=== PATIENT | male | born 1945 | race Hispanic/Latino ===

== ENCOUNTER 2017-11-27 08:00 | Outpatient (AMBR) | payer MEDICARE, MEDICAID, SELFPAY ==
--- NOTE | 2017-11-19 10:10 | PT.OIERPT ---
PT OP Initial Eval Patient Information Visit Reasons: Pain Medical Diagnosis: Treatment Dx #1: Start of Care: 11/19/17 Date of Onset: 8 weeks ago Initial Assessment Subjective Pt is 71 yr old [place] speaking male with Hx of C/S sx x3 with complaints of R sided weakness in the shoulders and LE's R>L side. The last sx was a laminectomy/fusion to repair a nerve pinch where he lost all movement below the neck. He is ambulating with 4WW for balance since 6 months ago when he was in a W/C. He reports improved gait speed and balance. He has fallen recently outside his home without the walker. The R knee km and gives out and he has noticed increased pain in the cervical extensors x8 weeks. He used to work in the bonds picking and doing physical labor. He reports pain from the base of the skull down to the shoulders and from R shoulder down the R side. PLOF: prior to hitting head he was working independently doing physical labor with slight R shoulder weakness PMH: DM, HTN, OA, asthma, COPD was smoker 20 yrs ago. C/S sx x3 including laminectomy and fusion in 2016 Imaging: MRI last year Pt goal: to move the UE's better and have better strength. Objective Shoulder ArOM: R: FF: 55 deg, L 45 deg with compensation Abduction: 33, L 28 deg HBB: to iliac crest Strength: 3-/5 in all planes of motion Biceps: 2/5 B Barrel Charrer strength: 32 lbs B C/S AROM: Extension: 40 deg Flexion: 34 deg B rotation: 23 deg Rowan's reflex: positive on R R ankle DF: 2+/5 Great toe extension: 3-/5 DASH: 72% Assessment Pt presents with UE extensor tone, C5-C7 and L4, L5 myotomal weakness that limits B shoulder RC and biceps function s/p C/S surgeries x3. Pt has very limited C/S ROM and suboccipital myofascial tension. 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 Balance limited by delayed balance reactions consistent with radiculopathy and LBP that radiates down R LE to foot. Pt has weak R ankle DF and great toe extension. Short Term and Shelter Goals 1. Ind with HEP 2. Improved alarm field technician strength to 42 lbs B 3. Improved C/S rotation to 33 deg B 4. Pt will be able to pull on pants independently. Treatment Plan 90 day POC in order to complete visits. Pt requires skilled therapy in order to increase strength, decrease pain and address aforementioned impairments. Rx may consist of Therex, Manual therapy, Neuromuscular re-education, Modalities as indicated-moist heat packs, ice packs, estim Frequency and Duration 2x a week for 6 weeks Certification Dates: 11/19/17 to 02/19/18 Office Procedures PT Outpatient G-Codes Date of Service PT Date of Service: 11/19/17 G-Codes Changing & Maintaining Body Post Body Position Current Status G-Code: G8981: CL 60-80% Body Position Goal Status G-Code: G8982: CK 40-60% PT Procedures PT Date of Service: 11/19/17 OP PT Eval High Complex 45 minutes: Yes
--- NOTE | 2017-11-19 10:21 | PTNOTE_ITS ---
PT OP Initial Eval Patient Information Visit Reasons: Pain Medical Diagnosis: Treatment Dx #1: Start of Care: 11/19/17 Date of Onset: 8 weeks ago Initial Assessment Subjective Pt is 71 yr old e[place]ian speaking male with Hx of C/S sx x3 with complaints of R sided weakness in the shoulders and LE's R>L side. The last sx was a laminectomy /fusion to repair a nerve pinch where he lost all movement below the neck. He is ambulating with 4WW for balance since 6 months ago when he was in a W/C. He reports improved gait speed and balance. He has fallen recently outside his home without the walker. The R knee km and gives out and he has noticed increased pain in the cervical extensors x8 weeks. He used to work in the bonds picking and doing physical labor. He reports pain from the base of the skull down to the shoulders and from R shoulder down the R side. PLOF: prior to hitting head he was working independently doing physical labor with slight R shoulder weakness PMH: DM, HTN, OA, asthma, COPD was smoker 20 yrs ago. C/S sx x3 including laminectomy and fusion in 2016 Imaging: MRI last year Pt goal: to move the UE's better and have better strength. Objective Shoulder ArOM: R: FF: 55 deg, L 45 deg with compensation Abduction: 33, L 28 deg HBB: to iliac crest Strength: 3-/5 in all planes of motion Biceps: 2/5 B Supervisor Wet Room strength: 32 lbs B C/S AROM: Extension: 40 deg Flexion: 34 deg B rotation: 23 deg Rowan's reflex: positive on R R ankle DF: 2+/5 Great toe extension: 3-/5 DASH: 72% Assessment Pt presents with UE extensor tone, C5-C7 and L4, L5 myotomal weakness that limits B shoulder RC and biceps function s/p C/S surgeries x3. Pt has very limited C/S ROM and suboccipital myofascial tension. Rowan's reflex is positive on R and B pool hand strength is weak. Balance limited by delayed balance reactions consistent with radiculopathy and LBP that radiates down R LE to foot. Pt has weak R ankle DF and great toe extension. Short Term and Senior Care Goals 1. Ind with HEP 2. Improved pool hand strength to 42 lbs B 3. Improved C/S rotation to 33 deg B 4. Pt will be able to pull on pants independently. Treatment Plan 90 day POC in order to complete visits. Pt requires skilled therapy in order to increase strength, decrease pain and address aforementioned impairments. Rx may consist of Therex, Manual therapy, Neuromuscular re-education, Modalities as indicated-moist heat packs, ice packs, estim Frequency and Duration 2x a week for 6 weeks Certification Dates: 11/19/17 to 02/19/18 Office Procedures PT Outpatient G-Codes Date of Service PT Date of Service: 11/19/17 G-Codes Changing & Maintaining Body Post Body Position Current Status G-Code: G8981: CL 60-80% Body Position Goal Status G-Code: G8982: CK 40-60% PT Procedures PT Date of Service: 11/19/17 OP PT Eval High Complex 45 minutes: Yes
--- NOTE | 2017-11-25 13:28 | PT.ODAYNRPT ---
PT Outpatient Daily Note Date of Service: November 25, 2017 OP Daily Note Visit Reasons: Pain Outpatient Physical Therapy Treatment Date: 11/25/17 Subjective: About the same as time of eval Objective: See F/S for therex Assessment: Limited biceps function and extensor tone limit shoulder strength and exercise tolerance. Plan: Continue per POC Length of Time (minutes) of Treatment: 30 Minutes Office Procedures PT Outpatient G-Codes Date of Service PT Date of Service: 11/19/17 G-Codes Changing & Maintaining Body Post Body Position Current Status G-Code: G8981: CL 60-80% Body Position Goal Status G-Code: G8982: CK 40-60% PT Procedures PT Date of Service: 11/19/17 OP PT Eval High Complex 45 minutes: Yes PT Procedures PT Date of Service: 11/25/17 Therapeutic Exercise 30 minutes: Yes
--- NOTE | 2017-11-27 08:48 | PT.ODAYNRPT ---
PT Outpatient Daily Note Date of Service: November 27, 2017 OP Daily Note Visit Reasons: Pain Outpatient Physical Therapy Treatment Date: 11/27/17 Subjective: Wasn't sore after last visit Objective: See F/S for therex Assessment: Limited biceps function and extensor tone limit shoulder strength and exercise tolerance consistent with C5 myotomal weakness. Plan: Continue per POC Length of Time (minutes) of Treatment: 30 Minutes Office Procedures PT Outpatient G-Codes Date of Service PT Date of Service: 11/19/17 G-Codes Changing & Maintaining Body Post Body Position Current Status G-Code: G8981: CL 60-80% Body Position Goal Status G-Code: G8982: CK 40-60% PT Procedures PT Date of Service: 11/19/17 OP PT Eval High Complex 45 minutes: Yes PT Procedures PT Date of Service: 11/25/17 Therapeutic Exercise 30 minutes: Yes PT Procedures PT Date of Service: 11/27/17 Therapeutic Exercise 30 minutes: Yes
== END 2017-11-27 23:59 ==
PROVIDERS: PCP Physician Assistant; Referring Provider Physician Assistant
DX: I10 Essential (primary) hypertension (principal)
CPT/HCPCS: 97110; 97163; G8981; G8982

== ENCOUNTER 2017-12-23 11:00 | Outpatient (AMBR) | payer MEDICARE, MEDICAID, SELFPAY ==
--- NOTE | 2017-12-02 12:08 | PTNOTE_ITS ---
PT Outpatient Daily Note Date of Service: December 02, 2017 OP Daily Note Visit Reasons: pain Outpatient Physical Therapy Treatment Date: 12/02/17 Subjective: Pt reports soreness all over attributed to general activities, ADL' s. Objective: See F/S for therex Assessment: UE extensor tone and C5 myotomal weakness limits exercise tolerance. Plan: Continue per POC Length of Time (minutes) of Treatment: 30 Minutes Office Procedures PT Procedures PT Date of Service: 12/02/17 Therapeutic Exercise 30 minutes: Yes
--- NOTE | 2017-12-04 10:11 | PT.ODAYNRPT ---
PT Outpatient Daily Note Date of Service: December 04, 2017 OP Daily Note Visit Reasons: pain Outpatient Physical Therapy Treatment Date: 12/04/17 Subjective: pt doing well with no complaints upon visit. Objective: see flow sheet. Assessment: pt very quiet with little feedback through out treatment. pt ambulated with FWW. pt had difficulty taking his hat off due to very limited elbow flexion so he compensates by trunk flexion until his hand can reach for the hat. assisted with putting his hat on again. pt tends to extend trunk to compensate for elbow flexion during exercise stacking cones. noted more lumbar extension when using the R shoulder than the L shoulder Plan: continue POC per PT. Length of Time (minutes) of Treatment: 30 Minutes Office Procedures PT Procedures PT Date of Service: 12/02/17 Therapeutic Exercise 30 minutes: Yes PT Procedures PT Date of Service: 12/04/17
--- NOTE | 2017-12-09 16:25 | PT.ODAYNRPT ---
PT Outpatient Daily Note Date of Service: December 09, 2017 OP Daily Note Visit Reasons: pain Outpatient Physical Therapy Treatment Date: 12/09/17 Subjective: Doing fine Objective: See F/S for therex Assessment: Pt can stabilize trunk and upper body in quadruped and has good LE extension in that position. Challenged by anything that requires C5-6 myotomes. Plan: Continue per POC Length of Time (minutes) of Treatment: 30 Minutes Office Procedures PT Procedures PT Date of Service: 12/02/17 Therapeutic Exercise 30 minutes: Yes PT Procedures PT Date of Service: 12/04/17 Therapeutic Exercise 30 minutes: Yes PT Procedures PT Date of Service: 12/09/17 Therapeutic Exercise 30 minutes: Yes
--- NOTE | 2017-12-11 11:37 | PT.ODAYNRPT ---
PT Outpatient Daily Note Date of Service: December 11, 2017 OP Daily Note Visit Reasons: pain Outpatient Physical Therapy Treatment Date: 12/11/17 Subjective: Doing fine, just tired today Objective: See F/S for therex Assessment: Pt can stabilize trunk and upper body in quadruped and has good LE extension in that position. Challenged by anything that requires C5-6 myotomes. Plan: Continue per POC Length of Time (minutes) of Treatment: 30 Minutes Office Procedures PT Procedures PT Date of Service: 12/02/17 Therapeutic Exercise 30 minutes: Yes PT Procedures PT Date of Service: 12/04/17 Therapeutic Exercise 30 minutes: Yes PT Procedures PT Date of Service: 12/09/17 Therapeutic Exercise 30 minutes: Yes PT Procedures PT Date of Service: 12/11/17 Therapeutic Exercise 30 minutes: Yes
--- NOTE | 2017-12-16 09:11 | PT.ODAYNRPT ---
PT Outpatient Daily Note Date of Service: December 16, 2017 OP Daily Note Visit Reasons: pain Outpatient Physical Therapy Treatment Date: 12/16/17 Subjective: Pt feels a little stronger since starting therapy Objective: See F/S for therex Assessment: Improving exercise tolerance with LE exercises but UE's are limited by myotomal deficits. Plan: Continue per POC Length of Time (minutes) of Treatment: 30 Minutes Office Procedures PT Procedures PT Date of Service: 12/02/17 Therapeutic Exercise 30 minutes: Yes PT Procedures PT Date of Service: 12/04/17 Therapeutic Exercise 30 minutes: Yes PT Procedures PT Date of Service: 12/09/17 Therapeutic Exercise 30 minutes: Yes PT Procedures PT Date of Service: 12/11/17 Therapeutic Exercise 30 minutes: Yes PT Procedures PT Date of Service: 12/16/17 Therapeutic Exercise 30 minutes: Yes
--- NOTE | 2017-12-18 12:28 | PT.ODAYNRPT ---
PT Outpatient Daily Note Date of Service: December 18, 2017 OP Daily Note Visit Reasons: pain Outpatient Physical Therapy Treatment Date: 12/18/17 Subjective: Pt feels a little stronger since starting therapy Objective: See F/S for therex Assessment: Improving exercise tolerance with LE exercises but UE's are limited by myotomal deficits. Plan: Continue per POC Length of Time (minutes) of Treatment: 30 Minutes Office Procedures PT Procedures PT Date of Service: 12/02/17 Therapeutic Exercise 30 minutes: Yes PT Procedures PT Date of Service: 12/04/17 Therapeutic Exercise 30 minutes: Yes PT Procedures PT Date of Service: 12/09/17 Therapeutic Exercise 30 minutes: Yes PT Procedures PT Date of Service: 12/11/17 Therapeutic Exercise 30 minutes: Yes PT Procedures PT Date of Service: 12/16/17 Therapeutic Exercise 30 minutes: Yes PT Procedures PT Date of Service: 12/18/17 Therapeutic Exercise 30 minutes: Yes
--- NOTE | 2017-12-23 18:31 | PT.ODS1RPT ---
PT OP Progress/Discharge Note Date of Service: December 23, 2017 Progress Note/DC Note Progress Note/Discharge Note: DC Note Patient Information Visit Reasons: pain Service Continue Service or Discharge: Discharge Discharge Date: 12/23/17 Certification Date Certification Dates: 11/19/17 to 02/19/18 Status Subjective: Pt feels a little stronger since starting therapy Objective: Shoulder ArOM: FF: 56 deg on R, 30 deg on L Abduction: 30 deg L 35 deg Assessment: Pt has attended 10/ Rx visits and made slow progress with goals. He has shown improving exercise tolerance with exercises but UE's are limited by myotomal deficits. Pt has limited UE function due to C5-6 myotomal deficits. C/S ROM is limited by Hx of C/S fusions. Plan: D/C with HEP Office Procedures PT Outpatient G-Codes Date of Service PT Date of Service: 12/23/17 G-Codes Changing & Maintaining Body Post Body Position Goal Status G-Code: G8982: CK 40-60% Body Position Discharge Status G-Code: G8983: CL 60-80% PT Procedures PT Date of Service: 12/02/17 Therapeutic Exercise 30 minutes: Yes PT Procedures PT Date of Service: 12/04/17 Therapeutic Exercise 30 minutes: Yes PT Procedures PT Date of Service: 12/09/17 Therapeutic Exercise 30 minutes: Yes PT Procedures PT Date of Service: 12/11/17 Therapeutic Exercise 30 minutes: Yes PT Procedures PT Date of Service: 12/16/17 Therapeutic Exercise 30 minutes: Yes PT Procedures PT Date of Service: 12/18/17 Therapeutic Exercise 30 minutes: Yes PT Procedures PT Date of Service: 12/23/17 Therapeutic Exercise 30 minutes: Yes PT Procedures PT Date of Service: 12/05/17 Therapeutic Exercise 30 minutes: Yes
== END 2017-12-27 23:59 ==
PROVIDERS: PCP Physician Assistant; Referring Provider Physician Assistant; Visit Provider Physician Assistant
DX: I10 Essential (primary) hypertension (principal)
CPT/HCPCS: 97110; G8982; G8983